=== PATIENT | male | born 1955 | race Caucasian/White ===

== ENCOUNTER 2016-05-28 21:04 | Emergency (ER) | payer MEDICARE, MEDICAID ==
[~2016-05-28] VITALS: Ht 172.7 cm; Wt 74.8 kg
[2016-05-28 21:04] VITALS: BP 118/82; PULSE 110; RESP 14; TEMP 99.9; O2SAT 99
[~2016-05-28 21:04] MED LIST: THYR60TA30 PO
--- NOTE | 2016-05-28 21:04 | NUR ---
Patient to ER bed 1 to gown for evaluation. Side rails up. Report given to GONZÁLEZ Ngo.
--- NOTE | 2016-05-28 21:05 | NUR ---
Pt brought in by ALS transport in stable condition. Pt was found in tri-podding position at a [employer] room. Pt stated that he was released from retirement today and has not been taking meds. Pt has a hx asthma and thyroid. Pt had a breathing tx in route. Placed pt on quality assurance monitor. No acute distress noted at this time, will continue to monitor. Pt present w/ 18 G to left AC placed by medics.
--- NOTE | 2016-05-28 21:13 | NUR ---
ER at bedside examining patient.
[2016-05-28] MEDS ORDERED: methylPREDNISolone SOD SUCC/PF 62.5 MG/ML VIAL IVP ONE (21:30)
[2016-05-28] MEDS ORDERED: IPRATROPIUM/ALBUTEROL SULFATE 3 ML AMPUL.NEB INH ONE (21:30)
[2016-05-28] MEDS ORDERED: NACL 0.9% 1,000 ML IV ONE (21:30)
[2016-05-28 21:55] LABS: BASOPHILS # (AUTO) 0.2 K/uL (0.0-0.2); BASOPHILS % (AUTO) 1.5 % (0.0-2.0); EOSINOPHILS % (AUTO) 0.2 % (0.0-4.0); HEMATOCRIT 46.1 % (36-54); HEMOGLOBIN 15.6 g/dL (14.0-18.0); LYMPHOCYTES # (AUTO) 0.7 K/uL (1.0-5.5); LYMPHOCYTES % (AUTO) 5.1 % (20.5-51.5); MEAN CORPUSCULAR HEMOGLOBIN 30 pg (27-31); MEAN CORPUSCULAR HGB CONC 34 % (32-36); MEAN CORPUSCULAR VOLUME 87 fL (79.0-98.0); MONOCYTES # (AUTO) 0.7 K/uL (0.0-1.0); MONOCYTES % (AUTO) 4.5 % (1.7-9.3); NEUTROPHILS # (AUTO) 13.1 K/uL (1.8-7.7); NEUTROPHILS % (AUTO) 88.7 % (40.0-70.0); PLATELET COUNT (AUTO) 333 K/uL (130-430); RED BLOOD CELL COUNT(AUTO) 5.28 MIL/uL (4.2-6.2); RED CELL DISTRIBUTION WIDTH 12.1 % (9.0-15.0); WHITE BLOOD COUNT (AUTO) 14.7 K/uL (4.8-10.8)
[2016-05-28 21:59] LABS: CALCIUM 8.9 mg/dL (8.4-11.0); CREATININE 1.41 mg/dL (0.55-1.30); POTASSIUM 4.1 mmol/L (3.5-5.1)
[2016-05-28 22:04] LABS: ALBUMIN 3.9 g/dL (3.4-4.8); TOTAL BILIRUBIN 0.7 mg/dL (0.0-1.0); TOTAL PROTEIN, SERUM 7.1 g/dL (6.4-8.3)
[2016-05-28 23:27] VITALS: BP 102/63; PULSE 104; RESP 18; TEMP 99.8; O2SAT 94
--- NOTE | 2016-05-28 23:27 | NUR ---
Patient given written and verbal discharge instructions and verbalizes understanding. ER MD Estrella discussed with patient the results and treatment provided. Patient in stable condition. ID arm band removed. IV catheter removed intact and dressing applied, no active bleeding. Rx of Azithromycin and Prednisone given. Patient educated on pain management and to follow up with PMD. Pain Scale 0/10. Opportunity for questions provided and answered.
[2016-05-29] MEDS ORDERED: MONT10TA25 PO (06:43)
[2016-05-29] MEDS ORDERED: ALBU8.5H8 INH (06:43)
== END 2016-05-28 23:27 | disposition home or self-care (01) ==
LOC: SED 21:04
DX: J44.1 Chronic obstructive pulmonary disease with (acute) exacerbation (principal); E86.0 Dehydration; N17.9 Acute kidney failure, unspecified
CPT/HCPCS: 36415; 71010; 80053; 83880; 84484; 85025; 94640; 96361; 96374; 99285; J2930; J7030; J7050

== ENCOUNTER 2016-05-29 05:38 | Inpatient (IN) | payer MEDICARE, MEDICAID ==
[~2016-05-29] VITALS: Ht 172.7 cm; Wt 74.8 kg
[2016-05-29 05:40] VITALS: BP 98/60; PULSE 100; RESP 23; TEMP 98.1; O2SAT 98
--- NOTE | 2016-05-29 05:40 | NUR ---
Patient to ER bed 6 to gown for evaluation. Side rails up. Report given to LAWRENCE CLAUDIO.
--- NOTE | 2016-05-29 05:42 | NUR ---
at bedside examining pt
[2016-05-29] MEDS ORDERED: IPRATROPIUM/ALBUTEROL SULFATE 3 ML AMPUL.NEB INH ONE (05:45)
[2016-05-29] MEDS ORDERED: methylPREDNISolone SOD SUCC/PF 62.5 MG/ML VIAL IVP ONE (05:45)
[2016-05-29] MEDS ORDERED: AZITHROMYCIN 500 MG in NS 250 ML IV ONE (05:45)
[2016-05-29] MEDS ORDERED: NACL 0.9% 1,000 ML IV ONE (05:45)
--- NOTE | 2016-05-29 05:50 | NUR ---
Pt BIB ALS with c/o SOB , wheezing at lower lobes, 93% on RA. Pt stated that he was seen and treated at [facility] today, couldn't refill his Rx, and got SOB. A&Ox4, denies chestpain, denies N/V/D. Skin intact, warm, non-diaphretic. Will continue to monitor
[2016-05-29] MEDS ORDERED: AZITHROMYCIN 500 MG/VIAL (ZITHROMAX) IV ONE (06:06)
--- NOTE | 2016-05-29 06:10 | NUR ---
RT at bedside performing breathing tx
[2016-05-29] MEDS ORDERED: MONT10TA25 PO (06:43)
[2016-05-29] MEDS ORDERED: ALBU8.5H8 INH (06:43)
--- NOTE | 2016-05-29 06:43 | NUR ---
Medication reconciliation completed with information provided by pt. Any prior medication reconciliation on file was reviewed and corrected.
--- NOTE | 2016-05-29 07:07 | NUR ---
Care endorsed to Nayeli CLAUDIO
--- NOTE | 2016-05-29 07:39 | NUR ---
PT SLEEPING QUIETLY, NO CHANGES
--- NOTE | 2016-05-29 07:51 | NUR ---
RECEIVED ADMITTING ORDERS FROM DR AVILA, CALLED FOR BED.
--- NOTE | 2016-05-29 07:52 | NUR ---
Patient will be admitted to care of DR AVILA. Admitted to MED SURG unit. Will go to room 100-A. Belongings list completed. Summary report printed. Report given to NURSE.
--- NOTE | 2016-05-29 08:05 | NUR ---
ADMISSION: The patient, SARAHI HENRY, 60 y/o, M admitted by Dr. Ayala , was given written information regarding hospital policies, unit procedures and contact persons. Patient does not exhibit respiratory distress at this time. Valuables were checked and .
[2016-05-29 08:07] VITALS: BP 106/67; PULSE 94; RESP 18; TEMP 98; O2SAT 97
[2016-05-29] MEDS ORDERED: IPRATROPIUM/ALBUTEROL SULFATE 3 ML AMPUL.NEB INH PRN (08:15)
--- NOTE | 2016-05-29 08:41 | NUR ---
Notes Wallet with $306.00 and metal ring with 3 stones placed in security bag and sent to safe with security staff.
--- NOTE | 2016-05-29 08:48 | NUR ---
INITIAL NOTES RECEIVED PATIENT ON BED AWAKE.BREATHING EVEN AND UNLABORED.NO ACUTE DISTRESS.IV SALINE LOCK INTACT AND PATENT.SAFETY AND FALL PRECAUTIONS IN PLACE.CALL LIGHT WITHIN REACH.ORIENTED TO ROOM
[2016-05-29] MEDS: NICOTINE 21 MG/24 HR PATCH.TD24 TD SCH (08:56)
--- NOTE | 2016-05-29 10:14 | NUR ---
Consult Order received for a consult with Dr Johnson for COPD exacerbation. Call was placed to [phone], exchange on, spoke with Nya. Dr Sanchez is director of graduate admissions. Will follow up as needed.
--- NOTE | 2016-05-29 10:40 | NUR ---
NOTES CHECKED PATIENT;NO ACUTE DISTRESS
[2016-05-29] MEDS: AZITHROMYCIN 250 MG in NS 250 ML IV SCH (10:49)
[2016-05-29] MEDS: cefTRIAXone 1 GM in D5W 50 ML IV SCH (10:50)
[2016-05-29 11:15] VITALS: BP 106/67; PULSE 98
[2016-05-29] MEDS: IPRATROPIUM/ALBUTEROL SULFATE 3 ML AMPUL.NEB INH SCH ×4 (11:17→23:42)
[2016-05-29] MEDS: methylPREDNISolone SOD SUCC 40 MG/ML VIAL IVP SCH ×3 (11:52→23:49)
--- NOTE | 2016-05-29 12:15 | NUR ---
NOTES SERVED LUNCH;WITH GOOD APPETITE;TOLERATED FOOD WELL
--- NOTE | 2016-05-29 15:48 | NUR ---
NOTES PATIENT ON BED AWAKE WATCHING T.V.NO ACUTE DISTRESS.NEEDS ATTENDED TO
[2016-05-29] MEDS: MONTELUKAST 10 MG TABLET PO SCH (17:23)
--- NOTE | 2016-05-29 17:50 | NUR ---
NOTES PATIENT OFFERED SHOWER;AGREED AND ABLE TO DO ACTIVITY INDEPENDENTLY;TOLERATED WELL
--- NOTE | 2016-05-29 18:20 | NUR ---
CLOSING NOTES PATIENT ON BED AWAKE.BREATHING EVEN AND UNLABORED.NO ACUTE DISTRESS.IV SALINE LOCK INTACT AND PATENT.SAFETY AND FALL PRECAUTIONS IN PLACE.CALL LIGHT WITHIN REACH.WILL ENDORSE TO NEXT SHIFT ACCORDINGLY
--- NOTE | 2016-05-29 19:55 | NUR ---
OPENING NOTES PATIENT IS IN BED RESTING AND WATCHING TV. VITAL SIGNS ARE STABLE. NO SIGNS OF DISTRESS. BREATHING IS NON LABORED. PATIENT HAS NO COMPLAINTS OF PAIN. PATIENT IS INSTRUCTED TO CALL FOR ASSISTANCE. CALL LIGHT IS WITHIN REACH. BED ALARM IS ON. WILL CONTINUE TO MONITOR.
--- NOTE | 2016-05-29 22:30 | NUR ---
ROUNDS PATIENT WAS GIVEN A SANDWICH AND APPLE JUICE.
--- NOTE | 2016-05-30 | NUR ---
ROUNDS PATIENT IS IN BED RESTING AND LISTENING TO MUSIC ON THE TELEVISION. NO SIGNS OF DISTRESS. BREATHING IS NON LABORED. CALL LIGHT IS WITHIN REACH. PATIENT INSTRUCTED TO CALL FOR ASSISTANCE. WILL CONTINUE TO MONITOR.
[2016-05-30 00:28] VITALS: BP 108/68; PULSE 95; RESP 18; TEMP 98.2; O2SAT 93
--- NOTE | 2016-05-30 02:02 | NUR ---
ROUNDS PATIENT IS IN BED SLEEPING. NO SIGNS OF DISTRESS. BREATHING IS NON LABORED. CALL LIGHT IS WITHIN REACH. BED ALARM IS ON. WILL CONTINUE TO MONITOR.
[2016-05-30] MEDS: IPRATROPIUM/ALBUTEROL SULFATE 3 ML AMPUL.NEB INH SCH ×5 (03:19→18:36)
--- NOTE | 2016-05-30 03:30 | NUR ---
SHORTNESS OF BREATH. PATIENT STATED THAT HE FELT A LITTLE SHORT OF BREATH. O2 SAT=92, RR=17. CALLED RT AND RT IS AT BEDSIDE.
[2016-05-30 03:35] VITALS: BP 136/76; PULSE 102; RESP 18; TEMP 97.7; O2SAT 92
--- NOTE | 2016-05-30 03:50 | NUR ---
ROUNDS PATIENT IS HAS NO COMPLAINTS OF SHORTNESS OF BREATH. BREATHING IS NON LABORED. NO SIGNS OF DISTRESS. WILL CONTINUE TO MONITOR.
--- NOTE | 2016-05-30 04:45 | NUR ---
ROUNDS PATIENT IS IN BED SLEEPING. NO SIGNS OF DISTRESS. BREATHING IS NON LABORED. WILL CONTINUE TO MONITOR.
[2016-05-30] MEDS: methylPREDNISolone SOD SUCC 40 MG/ML VIAL IVP SCH ×4 (06:13→23:50)
--- NOTE | 2016-05-30 06:45 | NUR ---
SHORTNESS OF BREATH/THICK SPUTUM PATIENT HAS SHORTNESS OF BREATH. PATIENT IS COUGHING AND COUGHING UP THICK,CLEAR SPUTUM. O2 SAT= 89%. RR=20. RT IS AT BEDSIDE PROVIDING BREATHING TREATMENTS AND PERCUSSIONS. PATIENT IS TOLERATING IT WELL. WILL CONTINUE TO MONITOR.
--- NOTE | 2016-05-30 06:47 | NUR ---
SPOKE TO DR. CALIXTO CALLED DOCTOR MARILY TO INFORMED HIM OF PATIENT CONDITION OF SHORTNESS OF BREATHING, O2 SAT AND AT 88% AND THICK SPUTUM. INFORMED MD THAT RT IS AT BEDSIDE PROVIDING BREATHING TREATMENTS. NO NEW ORDERS. WILL CONTINUE TO MONITOR PATIENT.
--- NOTE | 2016-05-30 07:12 | NUR ---
CLOSING NOTES PATIENT IS IN BED EATING BREAKFAST. NO COMPLAINTS OF SHORTNESS OF BREATH. BREATHING IS NON LABORED. NO SIGNS OF DISTRESS. CALL LIGHT IS WITHIN REACH. WILL ENDORSE TO THE MORNING NURSE.
[2016-05-30 07:21] LABS: CALCIUM 8.5 mg/dL (8.4-11.0); CREATININE 0.98 mg/dL (0.55-1.30); POTASSIUM 4.8 mmol/L (3.5-5.1)
[2016-05-30 08:00] VITALS: BP 139/81; PULSE 105; RESP 18; TEMP 98.6; O2SAT 95
--- NOTE | 2016-05-30 08:00 | NUR ---
INITIAL NOTE PT LAYING IN BED, EASY TO AROUSE, ALERT AND ORIENTED X4, NO S/S OF DISTRESS OR COMPLAINT AT THIS TIME, VSS, IV TO LAC SALINE LOCKED, PATENT. PT DENIES ANY SOB AT THIS TIME, STATES THAT HIS CHEST JUST FELS TIGHT WHEN HE BREATHES. PT REORIENTED TO USE OF CALL LIGHT AND IT IS PLACED WITHIN REACH, SAFETY MEASURES IN PLACE, BED IN LOW POSITION AND LOCKED, WILL FOLLOW UP.
[2016-05-30] MEDS: NICOTINE 21 MG/24 HR PATCH.TD24 TD SCH ×2 (09:00→09:37)
[2016-05-30] MEDS: cefTRIAXone 1 GM in D5W 50 ML IV SCH (09:36)
[2016-05-30] MEDS: AZITHROMYCIN 250 MG in NS 250 ML IV SCH (09:37)
--- NOTE | 2016-05-30 09:45 | NUR ---
PT APPEARS TO BE ANXIOUS, COUGHING, STRUGGLING, CALLED RT FOR PRN BREATHING TREATMENT, SEEMS TO CALM PATIENT DOWN. CALL LIGHT WITHIN REACH, WILL CONTINUE TO MONITOR,
--- NOTE | 2016-05-30 10:45 | NUR ---
DR AUSTIN CHEW, MADE AWARE OF PATIENT HAVING PRN BREATHING TREATMENT EVERY 2 HOURS, OF PATIENTS COMPLAINT OF ANXIETY AND CHEST TIGHTNESS, MD WILL FOLLOW UP.
--- NOTE | 2016-05-30 11:15 | NUR ---
CONSULT PSYCH ANXIETY DR GALLARDO [phone] S/W [facility] OFFICE @ 0847
[2016-05-30 11:27] VITALS: BP 125/78; PULSE 120; RESP 17; TEMP 96.1; O2SAT 94
[2016-05-30] MEDS ORDERED: guaiFENesin 200 MG/CODEINE 20 MG/ 10 ML UDC PO PRN (11:45)
[2016-05-30] MEDS ORDERED: ENOXAPARIN SODIUM 40 MG/0.4 ML SYRINGE SUBCUT ONE (12:00)
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
--- NOTE | 2016-05-30 14:20 | NUR ---
PATIENT PICKED UP FOR PROCEDURE
--- NOTE | 2016-05-30 14:48 | NUR ---
PT RETURNED FROM PROCEDURE, NO S/S OF DISTRESS NOTED, RETURNED TO BED, BED IN LOW POSITION AND LOCKED, CALL LIGHT WITHIN REACH, WILL FOLLOW UP
[2016-05-30 15:36] VITALS: BP 133/82; PULSE 112; RESP 19; TEMP 98.1; O2SAT 97
[2016-05-30] MEDS: BENZONATATE 100 MG CAPSULE (TESSALON) PO SCH ×2 (15:37→21:41)
[2016-05-30] MEDS: MONTELUKAST 10 MG TABLET PO SCH (17:32)
--- NOTE | 2016-05-30 17:37 | NUR ---
ROUNDS LPT SITTING UP IN BED, HAVING DINNER, SEEMS CALM, NOT ANXIOUS AT THIS TIME, ADMINISTERED TIME APPROPRIATE MEDICATIONS, PT STATED THEY HAVE NO OTHER NEEDS AT THIS TIME, CALL LIGHT WITHIN REACH, WILL CONTINUE TO MONITOR
[2016-05-30] MEDS: BUDESONIDE 0.5 MG/2 ML AMPUL.NEB INH SCH (18:36)
--- NOTE | 2016-05-30 19:00 | NUR ---
CLOSING NOTE PT LAYING IN BED, WATCHING TV, ALERT AND ORIENTED X4, IV TO LAC INTACT, PATENT. NO S/S OF DISTRESS OR ANXIETY NOTED AT THIS TIME, ALL NEEDS ATTENDED TO THROUGHOUT THE SHIFT, SAFETY MEASURES MAINTAINED, CALL LIGHT WITHIN REACH, BED IN LOW POSITION AND LOCKED, BED ALARM ON, PT AWARE OF FALL PRECAUTIONS,, WILL GIVE REPORT TO FOLLOWING SHIFT.
--- NOTE | 2016-05-30 20:03 | NUR ---
Opening Note Report received from Elsy CLAUDIO. Patient is in stable condition. IV is on the LAC 20g, saline locked. Currently on 2L O2 via NC. Patient has been having episodes of SOB. Breathing treatments are scheduled and PRN as well. Advised to use call light whenever in need of assistance. Call light is within reach.
[2016-05-30 20:13] VITALS: BP 149/99; PULSE 103; PULSE 20; RESP 20; TEMP 99.4; O2SAT 95
--- NOTE | 2016-05-30 22:20 | NUR ---
Rounds Patient is currently resting in bed. call light is within reach.
--- NOTE | 2016-05-31 00:37 | NUR ---
Rounds Patient is resting in bed. Call light is within reach. Bed alarm is on.
[2016-05-31 00:43] VITALS: BP 146/83; PULSE 106; RESP 17; TEMP 98; O2SAT 100
[2016-05-31] MEDS: IPRATROPIUM/ALBUTEROL SULFATE 3 ML AMPUL.NEB INH SCH ×6 (02:03→23:24)
--- NOTE | 2016-05-31 02:40 | NUR ---
Rounds Assisted patient to the restroom and back. Patient stated feeling short of breath. RT called for a breathing treatment will reassess.
[2016-05-31 04:32] VITALS: BP 142/86; PULSE 112; RESP 18; TEMP 98.2; O2SAT 99
--- NOTE | 2016-05-31 04:38 | NUR ---
Rounds Patient is currently sleeping in bed. Call light is within reach. Bed alarm is on.
[2016-05-31] MEDS: methylPREDNISolone SOD SUCC 40 MG/ML VIAL IVP SCH ×3 (05:21→22:27)
--- NOTE | 2016-05-31 06:10 | NUR ---
Closing Note Patient is resting in bed. He expressed being worried about his belongings left behind at the [employer] were patient was staying. Called the [employer], with the patient's permission, and asked to please hold the patient's belongings. IV is on the LAV 20g, saline locked. Psych consult is still pending will endorse to oncoming shift. Call light is within reach. Bed alarm is on.
[2016-05-31 07:05] LABS: HEMATOCRIT 42.9 % (36-54); HEMOGLOBIN 14.3 g/dL (14.0-18.0); LYMPHOCYTES # (AUTO) 0.5 K/uL (1.0-5.5); LYMPHOCYTES % (AUTO) 2.8 % (20.5-51.5); MEAN CORPUSCULAR HEMOGLOBIN 30 pg (27-31); MEAN CORPUSCULAR HGB CONC 33 % (32-36); MEAN CORPUSCULAR VOLUME 89 fL (79.0-98.0); MONOCYTES # (AUTO) 0.8 K/uL (0.0-1.0); MONOCYTES % (AUTO) 4.5 % (1.7-9.3); NEUTROPHILS # (AUTO) 17.4 K/uL (1.8-7.7); PLATELET COUNT (AUTO) 318 K/uL (130-430); RED BLOOD CELL COUNT(AUTO) 4.81 MIL/uL (4.2-6.2); RED CELL DISTRIBUTION WIDTH 12.8 % (9.0-15.0); WHITE BLOOD COUNT (AUTO) 18.7 K/uL (4.8-10.8)
[2016-05-31 07:13] LABS: CALCIUM 8.8 mg/dL (8.4-11.0); CREATININE 0.88 mg/dL (0.55-1.30); POTASSIUM 4.2 mmol/L (3.5-5.1)
[2016-05-31] MEDS: BUDESONIDE 0.5 MG/2 ML AMPUL.NEB INH SCH ×2 (07:25→19:59)
--- NOTE | 2016-05-31 08:00 | NUR ---
INITIAL NOTE PATIENT LAYING IN BED, RESTING, RECEIVING BREATHING TREATMENT AT THIS TIME, NO S/S OF DISTRESS, PAIN OR ANXIETY NOTED, IV TO LAC INTACT, SALINE LOCKED. PT ALERT AND ORIENTED X4. SAFETY PRECAUTIONS IN PLACE, BED IN LOW POSITION AND LOCKED, PT REORIENTED TO USE OF CALL LIGHT AND IT IS PLACED WITHIN REACH. MEAL TRAY SET UP FOR BREAKFAST BEFORE LEAVING ROOM, WILL FOLLOW UP.
[2016-05-31 08:05] VITALS: BP 134/72; PULSE 100; RESP 15; TEMP 96.9; O2SAT 100
[2016-05-31] MEDS: NICOTINE 21 MG/24 HR PATCH.TD24 TD SCH (09:00)
[2016-05-31] MEDS: BENZONATATE 100 MG CAPSULE (TESSALON) PO SCH ×3 (09:10→20:52)
[2016-05-31] MEDS: ENOXAPARIN SODIUM 40 MG/0.4 ML SYRINGE SUBCUT SCH (09:11)
[2016-05-31] MEDS: AZITHROMYCIN 250 MG in NS 250 ML IV SCH (09:12)
[2016-05-31] MEDS: cefTRIAXone 1 GM in D5W 50 ML IV SCH (09:12)
--- NOTE | 2016-05-31 10:00 | NUR ---
ROUNDS PT SITTING UP IN BED, ASSISTED IN PARTIAL BED BATH WITH HELP OF STUDENTS ROUNDING, NO S/S OF DISTRESS NOTED, APPEARS CALM AND LESS ANXIOUS, IN GOOD SPIRITS. SAFETY MEASURES IN PLACE, CALL LIGHT WITH IN REACH, WILL FOLLOW UP
[2016-05-31 10:51] LABS: NEUTROPHILS % (AUTO) 92.7 % (40.0-70.0)
[2016-05-31 11:29] VITALS: BP 123/76; PULSE 103; RESP 19; TEMP 97.6; O2SAT 94
--- NOTE | 2016-05-31 12:00 | NUR ---
ROUNDS PT SITTING UP IN BED, RESTING, EYES CLOSED, EQUAL RISE AND FALL OF CHEST NOTED, CALL LIGHT WITHIN REACH, WILL FOLLOW UP.
--- NOTE | 2016-05-31 14:00 | NUR ---
ROUNDS PT LAYING IN BED, SLEEPING, EASY TO AROUSE, STATES HE HAS NO NEEDS AT THIS TIME HE IS JUST FINALLY FEELING BETTER AND ABLE TO REST. SAFETY MEASURES IN PLACE, CALL LIGHT WITHIN REACH, WILL FOLLOW UP.
[2016-05-31 15:38] VITALS: BP 120/75; PULSE 96; RESP 19; TEMP 97.5; O2SAT 96
--- NOTE | 2016-05-31 16:44 | NUR ---
PSYCH CONSULT F/U Spoke with Ange regarding request for consultation with Dr. Arrieta ([phone]) for reason: anxiety.
[2016-05-31] MEDS: MONTELUKAST 10 MG TABLET PO SCH (17:24)
--- NOTE | 2016-05-31 17:30 | NUR ---
ROUNDS PATIENT SITTING UP IN BED, WATCHING TV, MEAL TRAY SET UP FOR DINNER, ADMINISTERED TIME APPROPRIATE MEDICATIONS, ALL NEEDS ATTENDED TO, CALL LIGHT WITH IN REACH. WILL FOLLOW UP
--- NOTE | 2016-05-31 19:00 | NUR ---
CLOSING NOTE PT SITTING UP IN BED, APPEARS TO BE IN GOOD SPIRITS, NO S/S OF DISTRESS OR ANXIETY NOTED, PT DENIES ANY SOB, VSS, IV SITE TO LAC PATENT AND INTACT, SALINE LOCKED. ALL NEEDS ATTENDED TO THROUGHOUT SHIFT. PSYCH CONSULT WAS CALLED IN YESTERDAY AND FOLLOWED UP ON TODAY, STILL AWAITING CONSULT. WILL ENDORSE TO FOLLOWING SHIFT. SAFETY MEASURES MAINTAINED, BED IN LOW POSITION AND LOCKED, CALL LIGHT WITHIN REACH, WILL GIVE REPORT TO FOLLOWING SHIFT.
[2016-05-31 20:00] VITALS: BP 140/81; PULSE 98; RESP 20; TEMP 98.3; O2SAT 96
--- NOTE | 2016-05-31 20:00 | NUR ---
opening note received patient awake sitting up in bed watching tv. no s/s resp distress. on room air. 02 95%. poc discussed with pt. comm board updated. safety precautions in place.
[2016-06-01] VITALS (7 sets, daily range): BP systolic 109–145; BP diastolic 65–99; PULSE 78–103; RESP 16–19; TEMP 96.4–98.6; O2SAT 91–97
--- NOTE | 2016-06-01 00:11 | NUR ---
PT RESTING NO S/S RESP DISTRESS. NO C/O PAIN. WILL CONTINUE TO MONITOR.
[2016-06-01] MEDS: IPRATROPIUM/ALBUTEROL SULFATE 3 ML AMPUL.NEB INH SCH ×6 (04:08→23:07)
--- NOTE | 2016-06-01 05:09 | NUR ---
ROUNDS PT AWAKE WATCHING TV. PT SAYS HE WAS ABLE TO SLEEP ON AND OFF THROUGH OUT NIGHT. NO S/S RESP DISTRESS. DUE MEDS TO BE GIVEN.
[2016-06-01] MEDS: methylPREDNISolone SOD SUCC 40 MG/ML VIAL IVP SCH ×3 (05:26→21:18)
[2016-06-01] MEDS: THYROID 30 MG TABLET PO SCH (06:22)
[2016-06-01] MEDS: BUDESONIDE 0.5 MG/2 ML AMPUL.NEB INH SCH ×2 (07:20→19:41)
--- NOTE | 2016-06-01 07:30 | NUR ---
am rounds: patient woke up and i introduced myself. awake,alert and oriented x4. iv to saline lock in placed. no distress. pt went back to sleep.
--- NOTE | 2016-06-01 08:00 | NUR ---
meal: breakfast served. pt situated,started eating his meal.
[2016-06-01] MEDS: BENZONATATE 100 MG CAPSULE (TESSALON) PO SCH ×3 (08:42→21:18)
[2016-06-01] MEDS: ENOXAPARIN SODIUM 40 MG/0.4 ML SYRINGE SUBCUT SCH (08:42)
[2016-06-01] MEDS: NICOTINE 21 MG/24 HR PATCH.TD24 TD SCH (08:42)
[2016-06-01] MEDS: cefTRIAXone 1 GM in D5W 50 ML IV SCH (08:43)
[2016-06-01] MEDS: AZITHROMYCIN 250 MG in NS 250 ML IV SCH (08:43)
--- NOTE | 2016-06-01 10:05 | NUR ---
rounds: resting. no problem.
--- NOTE | 2016-06-01 12:00 | NUR ---
ROUNDS: PT HAVING LUNCH.
--- NOTE | 2016-06-01 14:00 | NUR ---
IV MEDS: DUE IV SOLUMEDROL GIVEN ORDERED.
--- NOTE | 2016-06-01 15:08 | NUR ---
ROUNDS: PATIENT RESTING. STABLE.
[2016-06-01] MEDS: MONTELUKAST 10 MG TABLET PO SCH (17:39)
--- NOTE | 2016-06-01 17:43 | NUR ---
MEALS: EATING DURING ROUNDS. STABLE.
--- NOTE | 2016-06-01 18:30 | NUR ---
closing notes: stable. no problem.
--- NOTE | 2016-06-01 19:45 | NUR ---
initial note pt. received aaox4, no s/s of distress at this time. pt. denies pain. receiving breathing tx at this time. IV access noted to left AC, saline lock. pt. states he is able to ambulate with steady gait. encouraged to call for assistance, verbalizes understanding. plan of care discussed with pt., verbalizes understanding.will continue to monitor for any changes. safety and fall precautions in place. call light in reach. bed in lowest position with x2 side rails up.
--- NOTE | 2016-06-01 22:05 | NUR ---
rounds pt. sitting up in bed, no s/s of sob or distress noted. pt. denies pain. provided pt. with sandwich per his request. will continue to monitor for any changes. safety and fall precautions in place. call light in reach. pt. encouraged to call for any assistance. verbalizes understanding.
[2016-06-02 00:11] VITALS: BP 143/97; PULSE 98; RESP 18; TEMP 97.6; O2SAT 92
[2016-06-02] MEDS: ZOLPIDEM TARTRATE 5 MG TABLET PO PRN (00:19)
--- NOTE | 2016-06-02 00:20 | NUR ---
ROUNDS PT. SITTING UP IN BED WRITING NOTES ON PAPER. NO S.S OF SOB OR DISTRESS NOTED. PT. DENIES PAIN AT THIS TIME. PROVIDED PT. WITH MEDICATION TO PROMOTE SLEEP ORDERED, PER HIS REQUEST. WILL CONTINUE TO MONITOR. SAFETY AND FALL PRECAUTIONS IN PLACE. CALL LIGHT IN REACH.
--- NOTE | 2016-06-02 02:15 | NUR ---
ROUNDS PT. RESTING IN BED WITH EYES CLOSED. CHEST RISE AND FALL NOTED. NO S/S OF SOB OR DISTRESS. NO FACIAL GRIMACING INDICATING PAIN. WILL CONTINUE TO MONITOR FOR ANY CHANGES. SAFETY AND FALL PRECAUTIONS IN PLACE. CALL LIGHT IN REACH.
[2016-06-02] MEDS: IPRATROPIUM/ALBUTEROL SULFATE 3 ML AMPUL.NEB INH SCH ×6 (03:00→23:27)
[2016-06-02 03:58] VITALS: BP 129/79; PULSE 82; RESP 18; TEMP 98.2; O2SAT 93
[2016-06-02] MEDS: methylPREDNISolone SOD SUCC 40 MG/ML VIAL IVP SCH (06:06)
[2016-06-02] MEDS: THYROID 30 MG TABLET PO SCH (06:06)
--- NOTE | 2016-06-02 06:31 | NUR ---
CLOSING NOTE PT. RESTING IN BED WITH EYES CLOSED, EASILY AWAKENS. NO S/S OF SOB OR DISTRESS. DENIES PAIN. ALL NECESSARY NEEDS WERE MET, SAFETY AND FALL PRECAUTIONS WERE MAINTAINED. WILL ENDORSE CARE TO AM NURSE. CALL LIGHT IN REACH.
[2016-06-02] MEDS: BUDESONIDE 0.5 MG/2 ML AMPUL.NEB INH SCH ×2 (07:00→20:08)
--- NOTE | 2016-06-02 07:20 | NUR ---
initial rounds: pt on bed awake, alert and oriented. i.v. access patent. discussed plan of care. call light within reach. report received at bedside.
[2016-06-02 08:30] VITALS: BP 130/103; PULSE 98; RESP 14; TEMP 98.2; O2SAT 92
--- NOTE | 2016-06-02 09:00 | NUR ---
Trupti rounds: Seen by Dr. Greenwood with new order and encourage to ambulate the pt.
[2016-06-02] MEDS: BENZONATATE 100 MG CAPSULE (TESSALON) PO SCH ×3 (09:26→21:26)
[2016-06-02] MEDS: cefTRIAXone 1 GM in D5W 50 ML IV SCH (09:26)
[2016-06-02] MEDS: AZITHROMYCIN 250 MG in NS 250 ML IV SCH (09:26)
[2016-06-02] MEDS: ENOXAPARIN SODIUM 40 MG/0.4 ML SYRINGE SUBCUT SCH (09:27)
[2016-06-02] MEDS: NICOTINE 21 MG/24 HR PATCH.TD24 TD SCH (09:27)
[2016-06-02] MEDS: PREDNISONE 20 MG TABLET PO SCH ×2 (09:39→21:26)
--- NOTE | 2016-06-02 10:00 | NUR ---
rounds: pt able to ambulate in the hallway with assist.
[2016-06-02 11:52] VITALS: BP 134/82; PULSE 104; RESP 17; TEMP 98.9; O2SAT 93
--- NOTE | 2016-06-02 14:00 | NUR ---
rounds: pt on bed. no distress noted.
--- NOTE | 2016-06-02 15:45 | NUR ---
DC planning:Rec'd call from win Medellin at [employer] [phone]--his fax#[phone]--indicating pt is out of network and needs transfer in-network to [facility]--I called Dr. Jono Ayala and informed him-he said pt is medically stable for transfer to [facility]--I gave [place] Dr. Ayala's ph# and he said he will call us if [facility] has a bed and to use [facility] (he will call the nursing unit back with auth#)-I set up [facility] on will-call at [phone]--nurse Lizeth made aware and she will inform pt of need for transfer to [facility]--SOFY CLAUDIO Addendum: 06/02/16 at 1650 by Alta Morgan RN Transfer packet and cd taken to nursing unit by Chichi Uribe, vp digital marketing social media and crm--SOFY CLAUDIO
--- NOTE | 2016-06-02 17:00 | NUR ---
rounds: informed patient that he will be transferred to [facility], he verbalized understanding and agreed to the transfer.
[2016-06-02 17:10] VITALS: BP 147/92; PULSE 97; RESP 16; TEMP 99.8; O2SAT 93
[2016-06-02] MEDS: MONTELUKAST 10 MG TABLET PO SCH (17:43)
--- NOTE | 2016-06-02 17:46 | NUR ---
[facility]: JUAN Medellin, called and informed that the transfer papers is still going on until midnight. After midnight pt will be transferred tomorrow.
--- NOTE | 2016-06-02 19:30 | NUR ---
closing notes: patient walking back to the bed from the toilet. stable. call light within reach. report given at bedside.
[2016-06-02 19:45] VITALS: BP 144/89; PULSE 90; RESP 19; TEMP 99.4; O2SAT 94
--- NOTE | 2016-06-02 19:45 | NUR ---
INITIAL NOTE Patient resting on the bed. No acute distress. Respiration even and unlabored. AO x 4. Skin warm and dry to touch. SL intact to LAC, no redness, no swelling. Discussed the safety issue, use call light when help, and plan of care, verbally understanding. Safety measure maintained. Call light within reached. Bed in low position, side rails up. Refused to turn on bed alarm. Will continue to monitor.
--- NOTE | 2016-06-02 21:45 | NUR ---
ROUND Patient resting on the bed and talking to roommate. No acute distress. Respiration even and unlabored. Safety measure maintained. Call light within reached. Bed in low position, side rail up. Continue to monitor.
[2016-06-03] MEDS: ZOLPIDEM TARTRATE 5 MG TABLET PO PRN (00:12)
--- NOTE | 2016-06-03 00:14 | NUR ---
AMBIEN GIVEN Patient c/o insomnia, Ambien 5mg Po given as ordered. No acute distress. Safety measure maintained. Bed in low position, side rails up. Call light within reached. Educated patient to use call light when needs help because bed alarm not on, verbally understanding. Still refused bed alarm and stated" I did better." Call light within reached. Continue to monitor.
[2016-06-03 00:21] VITALS: BP 142/95; PULSE 89; RESP 18; TEMP 97.8; O2SAT 100
--- NOTE | 2016-06-03 02:10 | NUR ---
ROUND Patient sleeping at this time. No acute distress. Respiration even and unlabored. Safety measure maintained. Call light within reached. Bed in low position, side rail up. Continue to monitor.
[2016-06-03 03:39] VITALS: BP 122/72; PULSE 74; RESP 18; TEMP 97; O2SAT 94
--- NOTE | 2016-06-03 04:05 | NUR ---
ROUND Patient sleeping comfortable. No acute distress. Safety measure maintained. Call light within reached. Bed in low position, side rail up. Continue to monitor.
--- NOTE | 2016-06-03 05:27 | NUR ---
ROUND Patient sleeping comfortable. Respiration even and unlabored. No acute distress. Safety measure maintained. Call light within reached. Bed in low position, side rail up. Continue to monitor.
[2016-06-03] MEDS: THYROID 30 MG TABLET PO SCH (06:25)
--- NOTE | 2016-06-03 07:00 | NUR ---
CLOSING NOTE Patient resting on the bed. No acute distress. Respiration even and unlabored. SL intact to LAC, no redness, no swelling. All needs met. Hourly rounding during shift. Safety measure maintained. Call light within reached. Bed in low position, side rails up. Refused to turn on bed alarm. Will endorse to morning shift nurse.
--- NOTE | 2016-06-03 07:20 | NUR ---
initial notes: pt on bed. stable. discussed plan of care. call light within reach. report received at bedside.
[2016-06-03] MEDS: BUDESONIDE 0.5 MG/2 ML AMPUL.NEB INH SCH (07:21)
[2016-06-03] MEDS: IPRATROPIUM/ALBUTEROL SULFATE 3 ML AMPUL.NEB INH SCH ×3 (07:22→18:04)
--- NOTE | 2016-06-03 07:30 | NUR ---
Nutrition Update Anthony Scale 16 noted. Pt admitted for COPD exacerbation. Diet: regular BMI: 25.1 kg/m2 RD to follow per nutrition care standards.
[2016-06-03 08:00] VITALS: BP 131/80; PULSE 99; RESP 14; TEMP 98.1; O2SAT 94
[2016-06-03] MEDS: NICOTINE 21 MG/24 HR PATCH.TD24 TD SCH (08:27)
[2016-06-03] MEDS: cefTRIAXone 1 GM in D5W 50 ML IV SCH (08:27)
[2016-06-03] MEDS: PREDNISONE 20 MG TABLET PO SCH (08:27)
[2016-06-03] MEDS: ENOXAPARIN SODIUM 40 MG/0.4 ML SYRINGE SUBCUT SCH (08:27)
[2016-06-03] MEDS: BENZONATATE 100 MG CAPSULE (TESSALON) PO SCH ×2 (08:27→14:47)
--- NOTE | 2016-06-03 11:18 | NUR ---
Fixed Wing Pilot: CM informed nurse changes in the plan of care. [facility] medical informed that if pt is stable can be discharge and no need to transfer to [facility] due to 5 days already stayed in the hospital. CM suggest for lab test since last lab was 05/31. Informed Dr. Ayala with an order for labs, CXR and to begin discharge planning.
[2016-06-03 11:25] VITALS: BP 133/79; PULSE 103; RESP 19; TEMP 96.6; O2SAT 95
--- NOTE | 2016-06-03 11:54 | NUR ---
Social Service Note: TURFGRASS TECHNICIAN met at beside wit pt; pt's nurse present. TURFGRASS TECHNICIAN discussed that pt may be discharged this afternoon when pt's physician rounds and reviews pt's labs. TURFGRASS TECHNICIAN spoke with pt about his discharge plans; pt stated that he was unsure. Pt states that he needs to return to [employer] to retrieve his belongings; pt states that he is unsure if he will stay at [employer]. TURFGRASS TECHNICIAN spoke with pt about homeless resources; pt states that he will not go to a nursing home. TURFGRASS TECHNICIAN provided pt with homeless resources if he changed his mind. TURFGRASS TECHNICIAN asked pt if he had made contact with his father; pt states that he does not remember the phone number and once he retrieves his belongings he will be able to call his father. Pt states that he will stay in [place] or go to his fathers house if the restraining order has been lifted. Pt will need a taxi voucher to get to [employer]. TURFGRASS TECHNICIAN has placed homeless waiver in pt's chart to be signed upon discharge. TURFGRASS TECHNICIAN will remain available for support and will follow up as needed.
[2016-06-03 12:28] LABS: CALCIUM 8.6 mg/dL (8.4-11.0); CREATININE 0.94 mg/dL (0.55-1.30)
[2016-06-03 12:52] LABS: BASOPHILS # (AUTO) 0.1 K/uL (0.0-0.2); BASOPHILS % (AUTO) 0.8 % (0.0-2.0); EOSINOPHILS % (AUTO) 0.1 % (0.0-4.0); HEMOGLOBIN 15.8 g/dL (14.0-18.0); LYMPHOCYTES # (AUTO) 1.9 K/uL (1.0-5.5); LYMPHOCYTES % (AUTO) 11.9 % (20.5-51.5); MEAN CORPUSCULAR HEMOGLOBIN 29 pg (27-31); MEAN CORPUSCULAR HGB CONC 34 % (32-36); MEAN CORPUSCULAR VOLUME 88 fL (79.0-98.0); MONOCYTES # (AUTO) 2.3 K/uL (0.0-1.0); MONOCYTES % (AUTO) 14.8 % (1.7-9.3); NEUTROPHILS # (AUTO) 11.5 K/uL (1.8-7.7); NEUTROPHILS % (AUTO) 72.4 % (40.0-70.0); PLATELET COUNT (AUTO) 433 K/uL (130-430); RED BLOOD CELL COUNT(AUTO) 5.35 MIL/uL (4.2-6.2); RED CELL DISTRIBUTION WIDTH 12.5 % (9.0-15.0); WHITE BLOOD COUNT (AUTO) 15.8 K/uL (4.8-10.8)
--- NOTE | 2016-06-03 14:52 | NUR ---
rounds: pt on bed resting. no distress noted.
[2016-06-03 15:58] VITALS: BP 146/99; PULSE 104; RESP 19; TEMP 97.3; O2SAT 95
[2016-06-03] MEDS ORDERED: PRED10TA PO (17:09)
--- NOTE | 2016-06-03 17:30 | NUR ---
Trupti rounds: seen by Dr. Ayala with new order.
--- NOTE | 2016-06-03 17:42 | NUR ---
Rec'd call from Mantara iwn Chapman who was made aware pt is homeless-she is making appt for him as outpt and will fax it to us. She faxed it--this info was given to nurse Stanley who will give to pt-environmental services worker has met with pt earlier today--SOFY RN
[2016-06-03] MEDS: MONTELUKAST 10 MG TABLET PO SCH (18:12)
[2016-06-03 18:35] VITALS: BP_SYST 138; BP_SYST 146; BP_DIAS 80; BP_DIAS 99; PULSE 100; PULSE 104; RESP 19; TEMP 97.3; O2SAT 95
[2016-06-03] MEDS ORDERED: BECL8.7A5 INH (18:45)
--- NOTE | 2016-06-03 19:30 | NUR ---
D/C Patient Patient given medication reconciliation form and D/C instructions. Exit Care provided. Patient verbalized understanding. MD discussed with patient the results and treatment provided. Ambulatory with steady gait for discharge to home. Patient in stable condition, ID band removed. IV catheter removed, intact and dressing applied, no active bleeding. Rx given. Patient educated on pain management. All belongings sent with patient. Pt went to lobby to cloth picker his valuable belongings and wait for the taxi.
--- NOTE | 2016-06-13 15:08 | NUR ---
Discharge Follow Up Phone Calls: Call Center Support Representative called pt ([phone]) on 06/08/16, 06/09/16, 06/13/16, psych social worker was unable to leave a message for pt due to phone number not accepting calls. No further follow up calls will be made at this time.
== END 2016-06-03 19:45 | disposition home or self-care (01) | DRG 191 ==
LOC: SED 05:38 → SMU 07:47
PROVIDERS: ADMIT Family Medicine; ATTEND Family Medicine
DX: J44.1 Chronic obstructive pulmonary disease with (acute) exacerbation (principal); J45.901 Unspecified asthma with (acute) exacerbation; N28.9 Disorder of kidney and ureter, unspecified; E03.9 Hypothyroidism, unspecified; F41.9 Anxiety disorder, unspecified; F17.200 Nicotine dependence, unspecified, uncomplicated; G47.00 Insomnia, unspecified; Z79.899 Other long term (current) drug therapy
CPT/HCPCS: 36415; 71010; 71020-TC; 80048; 85025; 87040-TC; 94640; 94760; 96365; 96375; 99285; J0456; J0696; J1030; J1650; J2930; J7030; J7050; J7060; J7512

== ENCOUNTER 2018-03-19 10:21 | Emergency (ER) | payer MEDICARE, MEDICAID ==
[~2018-03-19] VITALS: Ht 172.7 cm; Wt 77.1 kg
[~2018-03-19 10:21] MED LIST changes: +ALBU8.5H8 INH; +BECL8.7A5 INH; +MONT10TA25 PO; +PRED10TA PO
[2018-03-19 10:25] VITALS: BP_SYST 140
--- NOTE | 2018-03-19 10:25 | NUR ---
BROUGHT BACK TO BED #4 AND TRIAGED. REPORT GIVEN TO HERMANN
--- NOTE | 2018-03-19 10:40 | NUR ---
ER Dr. VILLASENOR at bedside examining patient.
--- NOTE | 2018-03-19 10:50 | NUR ---
PATIENT SITTING UP ON BED. AAOX4. RESPIRATIONS EVEN AND UNLABORED. DENIES OF ANY CHEST PAIN OR SOB. PT WITH C/O BILATERAL GREATER TOE PAIN. BILATERAL GREATER TOES NOTED WITH FLUID FILLED BLISTERS. PT STATES, "I HAVE BEEN NEWLY HOMELSS AND HAVE BEEN WALKING A LOT." PT DENIES OF ANY FEVERS. BILATERAL LOWER EXTREMITIES AND FEET NOTED WITH REDNESS, NO SWELLING, WARM TO TOUCH. PAIN = 4/10; TOLERABLE VERBALIZED. PT DENIES THE NEED FOR ANY PAIN MEDICATIONS. PT RESTING COMFORTABLY ON BED. NO ACUTE DISTRESS. WILL CONTINUE TO MONITOR.
--- NOTE | 2018-03-19 10:55 | NUR ---
BRIM WELT SEWING MACHINE OPERATOR AT BEDSIDE AND SPEAKING WITH PATIENT.
[2018-03-19 10:58] LABS: BASOPHILS # (AUTO) 0.1 K/uL (0.0-0.2); BASOPHILS % (AUTO) 1.5 % (0.0-2.0); EOSINOPHILS # (AUTO) 0.3 K/uL (0.0-0.4); HEMATOCRIT 44.4 % (36-54); HEMOGLOBIN 14.6 g/dL (14.0-18.0); LYMPHOCYTES # (AUTO) 2.1 K/uL (1.0-5.5); LYMPHOCYTES % (AUTO) 22.4 % (20.5-51.5); MEAN CORPUSCULAR HEMOGLOBIN 30 pg (27-31); MEAN CORPUSCULAR HGB CONC 33 % (32-36); MEAN CORPUSCULAR VOLUME 92 fL (79.0-98.0); NEUTROPHILS % (AUTO) 63.1 % (40.0-70.0); PLATELET COUNT (AUTO) 465 K/uL (130-430); RED CELL DISTRIBUTION WIDTH 12.8 % (9.0-15.0); WHITE BLOOD COUNT (AUTO) 9.5 K/uL (4.8-10.8)
[2018-03-19 11:10] LABS: CALCIUM 9.5 mg/dL (8.4-11.0); CREATININE 1.07 mg/dL (0.55-1.30); POTASSIUM 4.9 mmol/L (3.5-5.1)
[2018-03-19 11:15] LABS: ALBUMIN 4.1 g/dL (3.4-4.8); C-REACTIVE PROTEIN QUANT 2.5 mg/dL (0-0.5); INR 0.9 (0.80-1.20); PROTHROMBIN TIME 9.5 SECS (9.5-12.5); TOTAL BILIRUBIN 0.5 mg/dL (0.0-1.0)
--- NOTE | 2018-03-19 11:20 | NUR ---
HOMELESS RESOURCES INFORMATION GIVEN BY TWILL CUTTER.
--- NOTE | 2018-03-19 11:52 | NUR ---
Muskrat Trapper Note OPEN HEARTH LABORER met with patient at bedside. Discussed that patient has recently lost his home of two years and has been homeless one week. Patient stated he needs a place to sleep. He stated he has money but cannot go to a motel because he does not have a current ID. He stated he has disability income and health insurance with a primary care doctor. He stated he has been asked not to return to the winter snf. Patient is familiar with the bus system and is agreeable to going to a snf. He was given information on the [facility], [address] [facility] in [place]. He was told he will be given priority admission if he shows his hospital discharge paperwork. Patient was provided with directions to get there by bus and was told he should try to arrive by 3pm. tray drier operator are available on site. Patient stated he has money for food. He refused mental health resources but accepted the list of [facility] clinics for medical follow up in case his PCP is unavailable.
--- NOTE | 2018-03-19 12:38 | NUR ---
Patient given written and verbal discharge instructions and verbalizes understanding. ER MD VILLASENOR discussed with patient the results and treatment provided. Patient in stable condition. ID arm band removed. Rx of NORCO, CEPHALEXIN, CLINDAMYCIN, SULFAMETHOXAZOLE given. Patient educated on pain management and to follow up with PMD. Pain Scale 0. Opportunity for questions provided and answered. Medication side effect fact sheet provided.
[2018-03-19 12:39] VITALS: BP_SYST 133
== END 2018-03-19 12:39 | disposition home or self-care (01) ==
LOC: SED 10:21
DX: S90.822A Blister (nonthermal), left foot, initial encounter (principal); J45.909 Unspecified asthma, uncomplicated; Z79.899 Other long term (current) drug therapy; X58.XXXA Exposure to other specified factors, initial encounter; Y93.89 Activity, other specified; Y92.89 Other specified places as the place of occurrence of the external cause; Y99.8 Other external cause status
CPT/HCPCS: 36415; 80053; 85025; 85610-TC; 85730-TC; 86140; 99283

== ENCOUNTER 2018-06-07 15:35 | Emergency (ER) | payer MEDICARE, MEDICAID ==
[~2018-06-07] VITALS: Ht 172.7 cm; Wt 85.3 kg
--- NOTE | 2018-06-07 15:36 | NUR ---
Dr Galindo at bedside completing MSE at triage room
--- NOTE | 2018-06-07 15:40 | NUR ---
Patient to ER bed 05 to gown for evaluation. Side rails up.
--- NOTE | 2018-06-07 15:42 | NUR ---
Pt brought by self,A&Ox4, pt presents to ER with generalized skin rash , states he has used the jacuzzi the last three days and noticed the rash,c/o severe itching, pt afebrile.
[2018-06-07 15:48] VITALS: BP_SYST 151
[2018-06-07] MEDS ORDERED: methylPREDNISolone SOD SUCC/PF 62.5 MG/ML VIAL IM ONE (16:30)
--- NOTE | 2018-06-07 17:10 | NUR ---
Pt states he is homeless, Food tray and homeless packet provided to patient at this time.
[2018-06-07 17:24] VITALS: BP_SYST 148
--- NOTE | 2018-06-07 17:26 | NUR ---
Patient given written and verbal discharge instructions and verbalizes understanding. ER MD discussed with patient the results and treatment provided. Patient in stable condition. ID arm band removed. Rx of [Prednisone and Benadryl] given. Patient educated on pain management and to follow up with PMD. Pain Scale [ 0/10]. Opportunity for questions provided and answered. Medication side effect fact sheet provided.
== END 2018-06-07 17:26 | disposition home or self-care (01) ==
LOC: SED 15:35
DX: T78.40XA Allergy, unspecified, initial encounter (principal); J44.9 Chronic obstructive pulmonary disease, unspecified; R03.0 Elevated blood-pressure reading, without diagnosis of hypertension; Z79.899 Other long term (current) drug therapy; X58.XXXA Exposure to other specified factors, initial encounter
CPT/HCPCS: 96372; 99283; J2930; J7030

== ENCOUNTER 2018-06-09 13:42 | Emergency (ER) | payer MEDICARE, MEDICAID ==
[~2018-06-09] VITALS: Ht 172.7 cm; Wt 86.2 kg
[2018-06-09 13:51] VITALS: BP_SYST 137
--- NOTE | 2018-06-09 13:59 | NUR ---
Patient to ER bed 8 to gown for evaluation. Side rails up. Report given to Beronica CLAUDIO.
--- NOTE | 2018-06-09 14:04 | NUR ---
Patient is here for red rash which is itchy, with dry scales covering arms, legs, trunk and hands. Patient states that he was seen here 2 days ago, treated with steroids and has not improved.
--- NOTE | 2018-06-09 14:04 | NUR ---
ER Dr. Delgado at bedside examining patient.
[2018-06-09] MEDS ORDERED: NACL 0.9% 1,000 ML IV ONE (14:07)
[2018-06-09] MEDS ORDERED: DIPHENHYDRAMINE INJ 50 MG/ML VIAL IVP ONE (14:15)
[2018-06-09] MEDS ORDERED: DEXAMETHASONE SOD PHOSPHATE 10 MG/ML VIAL IVP ONE (14:15)
--- NOTE | 2018-06-09 14:35 | NUR ---
Medicated per MD orders. IVF infusing with no s/s of infiltration at this time. Will cont to monitor
--- NOTE | 2018-06-09 14:35 | NUR ---
# 18 gauge angiocath placed to left AC. Use of asceptic technique. Opsite placed over site. Blood return noted. Blood for lab drawn from site. Flushed with 10 cc of normal saline. No evidence of infiltration noted. Patient tolerated well.
[2018-06-09 14:46] LABS: CALCIUM 8.5 mg/dL (8.4-11.0); CREATININE 0.88 mg/dL (0.55-1.30)
[2018-06-09 14:52] LABS: ALBUMIN 3.6 g/dL (3.4-4.8); TOTAL BILIRUBIN 0.3 mg/dL (0.0-1.0)
[2018-06-09 14:56] LABS: BASOPHILS % (AUTO) 0.3 % (0.0-2.0); EOSINOPHILS % (AUTO) 0.3 % (0.0-4.0); HEMATOCRIT 40.9 % (36-54); HEMOGLOBIN 13.5 g/dL (14.0-18.0); LYMPHOCYTES % (AUTO) 10.9 % (20.5-51.5); MEAN CORPUSCULAR HEMOGLOBIN 30 pg (27-31); MEAN CORPUSCULAR HGB CONC 33 % (32-36); MEAN CORPUSCULAR VOLUME 91 fL (79.0-98.0); MONOCYTES % (AUTO) 3.3 % (1.7-9.3); NEUTROPHILS % (AUTO) 85.2 % (40.0-70.0); PLATELET COUNT (AUTO) 355 K/uL (130-430); RED CELL DISTRIBUTION WIDTH 13.2 % (9.0-15.0)
[2018-06-09 14:57] LABS: LYMPHOCYTES # (AUTO) 0.8 K/uL (1.0-5.5); MONOCYTES # (AUTO) 0.2 K/uL (0.0-1.0)
--- NOTE | 2018-06-09 15:08 | NUR ---
Patient given written and verbal discharge instructions and verbalizes understanding. ER MD discussed with patient the results and treatment provided. Patient in stable condition. ID arm band removed. IV catheter removed intact and dressing applied, no active bleeding. Rx of atarax, prednisone given. Patient educated on pain management and to follow up with PMD. Pain Scale 0/10. Opportunity for questions provided and answered. Medication side effect fact sheet provided.
[2018-06-09 15:12] VITALS: BP_SYST 137
== END 2018-06-09 15:12 | disposition home or self-care (01) ==
LOC: SED 13:42
DX: L20.9 Atopic dermatitis, unspecified (principal); L23.9 Allergic contact dermatitis, unspecified cause; J44.9 Chronic obstructive pulmonary disease, unspecified; R07.9 Chest pain, unspecified; Z79.899 Other long term (current) drug therapy
CPT/HCPCS: 36415; 80053; 85025; 96374; 96375; 99283; J1100; J1200; J7030

== ENCOUNTER 2018-07-04 06:10 | Inpatient (IN) | payer MEDICARE, MEDICAID ==
[~2018-07-04] VITALS: Ht 152.4 cm; Wt 87.1 kg
[2018-07-04 06:16] VITALS: BP_SYST 126
[2018-07-04] MEDS ORDERED: NACL 0.9% 1,000 ML IV ONE (06:40)
[2018-07-04] MEDS ORDERED: IPRATROPIUM BROM 0.5 MG/2.5 ML VIAL.NEB (ATROVENT) IH ONE (06:45)
[2018-07-04] MEDS ORDERED: methylPREDNISolone SOD SUCC/PF 62.5 MG/ML VIAL IVP ONE ×2 (06:45→10:30)
[2018-07-04] MEDS ORDERED: LevALBUTEROL HCL 1.25 MG/0.5 ML *CONC.* VIAL.NEB (XOPENEX CONC.) INH ONE ×4 (06:45→07:18)
[2018-07-04] MEDS ORDERED: MAGNESIUM SULFATE 50 ML IV ONE (06:45)
[2018-07-04 07:12] LABS: CALCIUM 8.3 mg/dL (8.4-11.0); CREATININE 0.98 mg/dL (0.55-1.30); POTASSIUM 3.7 mmol/L (3.5-5.1)
[2018-07-04 07:13] LABS: BASOPHILS # (AUTO) 0.1 K/uL (0.0-0.2); BASOPHILS % (AUTO) 1.1 % (0.0-2.0); EOSINOPHILS # (AUTO) 0.3 K/uL (0.0-0.4); EOSINOPHILS % (AUTO) 5.1 % (0.0-4.0); HEMATOCRIT 42.9 % (36-54); HEMOGLOBIN 14.5 g/dL (14.0-18.0); LYMPHOCYTES # (AUTO) 1.5 K/uL (1.0-5.5); LYMPHOCYTES % (AUTO) 23.7 % (20.5-51.5); MEAN CORPUSCULAR HEMOGLOBIN 30 pg (27-31); MEAN CORPUSCULAR HGB CONC 34 % (32-36); MEAN CORPUSCULAR VOLUME 90 fL (79.0-98.0); MONOCYTES # (AUTO) 1.3 K/uL (0.0-1.0); MONOCYTES % (AUTO) 19.6 % (1.7-9.3); NEUTROPHILS # (AUTO) 3.3 K/uL (1.8-7.7); NEUTROPHILS % (AUTO) 50.5 % (40.0-70.0); PLATELET COUNT (AUTO) 334 K/uL (130-430); RED CELL DISTRIBUTION WIDTH 13.1 % (9.0-15.0); WHITE BLOOD COUNT (AUTO) 6.4 K/uL (4.8-10.8)
[2018-07-04 07:17] LABS: ALBUMIN 3.5 g/dL (3.4-4.8); TOTAL BILIRUBIN 0.5 mg/dL (0.0-1.0)
[2018-07-04] MEDS ORDERED: LEVO25TA7 PO (08:59)
[2018-07-04 10:14] VITALS: BP_SYST 131
[2018-07-04] MEDS ORDERED: IPRATROPIUM BROM 0.5 MG/2.5 ML VIAL.NEB (ATROVENT) INH PRN (10:30)
[2018-07-04] MEDS ORDERED: ALBUTEROL SULFATE 0.083% 2.5 MG/3 ML VIAL.NEB INH PRN (10:30)
[2018-07-04] MEDS ORDERED: THYROID PORK 60 MG PO SCH (10:45)
[2018-07-04] MEDS ORDERED: LEVOTHYROXINE SODIUM 0.025 MG TABLET PO ONE (10:45)
[2018-07-04] MEDS: cefTRIAXone 1 GM IVPB PREMIX 50 ML IV SCH (11:12)
[2018-07-04] MEDS: ALBUTEROL SULFATE 0.083% 2.5 MG/3 ML VIAL.NEB INH SCH ×4 (11:18→23:07)
[2018-07-04] MEDS: IPRATROPIUM BROM 0.5 MG/2.5 ML VIAL.NEB (ATROVENT) INH SCH ×4 (11:18→23:07)
[2018-07-04] MEDS: AZITHROMYCIN 500 MG in NS 250 ML IV SCH (12:07)
[2018-07-04 12:41] VITALS: BP_SYST 142
[2018-07-04] MEDS: methylPREDNISolone SOD SUCC/PF 62.5 MG/ML VIAL IVP SCH ×2 (14:00→21:45)
[2018-07-04 16:35] VITALS: BP_SYST 152
[2018-07-04 20:00] VITALS: BP_SYST 135
[2018-07-04 23:56] VITALS: BP_SYST 126
[2018-07-05] MEDS: ALBUTEROL SULFATE 0.083% 2.5 MG/3 ML VIAL.NEB INH SCH ×6 (03:02→22:57)
[2018-07-05] MEDS: IPRATROPIUM BROM 0.5 MG/2.5 ML VIAL.NEB (ATROVENT) INH SCH ×6 (03:03→22:57)
[2018-07-05] MEDS: methylPREDNISolone SOD SUCC/PF 62.5 MG/ML VIAL IVP SCH ×3 (04:57→21:58)
[2018-07-05 08:00] VITALS: BP_SYST 129
[2018-07-05] MEDS ORDERED: LEVOTHYROXINE SODIUM 0.025 MG TABLET PO SCH (09:00)
[2018-07-05] MEDS ORDERED: LEVOTHYROXINE SODIUM 0.05 MG TABLET PO ONE (09:45)
[2018-07-05] MEDS: AZITHROMYCIN 500 MG in NS 250 ML IV SCH (09:45)
[2018-07-05] MEDS: cefTRIAXone 1 GM IVPB PREMIX 50 ML IV SCH (11:07)
[2018-07-05 13:53] VITALS: BP_SYST 145
[2018-07-05] MEDS: PHENOL/MENTHOL 14.5 MG LOZENGE MM PRN (14:59)
[2018-07-05 16:40] VITALS: BP_SYST 138
[2018-07-05 19:25] VITALS: BP_SYST 139
[2018-07-05] MEDS: guaiFENesin ER 600 MG TAB PO SCH (21:57)
[2018-07-06 01:01] VITALS: BP_SYST 136
[2018-07-06] MEDS: IPRATROPIUM BROM 0.5 MG/2.5 ML VIAL.NEB (ATROVENT) INH SCH ×6 (03:00→22:23)
[2018-07-06] MEDS: ALBUTEROL SULFATE 0.083% 2.5 MG/3 ML VIAL.NEB INH SCH ×6 (03:00→22:23)
[2018-07-06] MEDS: methylPREDNISolone SOD SUCC/PF 62.5 MG/ML VIAL IVP SCH ×3 (06:15→21:37)
[2018-07-06 08:00] VITALS: BP_SYST 135
[2018-07-06] MEDS: LEVOTHYROXINE SODIUM 0.05 MG TABLET PO SCH (09:40)
[2018-07-06] MEDS: guaiFENesin ER 600 MG TAB PO SCH ×2 (09:45→21:42)
[2018-07-06] MEDS: AZITHROMYCIN 500 MG in NS 250 ML IV SCH (09:46)
[2018-07-06] MEDS: cefTRIAXone 1 GM IVPB PREMIX 50 ML IV SCH (11:57)
[2018-07-06 13:39] VITALS: BP_SYST 128
[2018-07-06 17:16] VITALS: BP_SYST 148
[2018-07-06] MEDS: MONTELUKAST 10 MG TABLET PO SCH (17:16)
[2018-07-06 21:25] VITALS: BP_SYST 138
[2018-07-06] MEDS: PHENOL/MENTHOL 14.5 MG LOZENGE MM PRN (21:39)
[2018-07-07 00:55] VITALS: BP_SYST 139
[2018-07-07] MEDS: LEVOTHYROXINE SODIUM 0.05 MG TABLET PO SCH (06:21)
[2018-07-07] MEDS: methylPREDNISolone SOD SUCC/PF 62.5 MG/ML VIAL IVP SCH (06:21)
[2018-07-07] MEDS: ALBUTEROL SULFATE 0.083% 2.5 MG/3 ML VIAL.NEB INH SCH ×5 (06:36→23:00)
[2018-07-07] MEDS: IPRATROPIUM BROM 0.5 MG/2.5 ML VIAL.NEB (ATROVENT) INH SCH ×5 (06:36→23:00)
[2018-07-07 08:15] VITALS: BP_SYST 138
[2018-07-07] MEDS: guaiFENesin ER 600 MG TAB PO SCH ×2 (08:22→21:05)
[2018-07-07] MEDS: AZITHROMYCIN 500 MG in NS 250 ML IV SCH (10:07)
[2018-07-07 11:50] VITALS: BP_SYST 131
[2018-07-07 12:34] VITALS: BP_SYST 131
[2018-07-07 12:40] LABS: BILIRUBIN,URINE NEGATIVE (NEGATIVE); BLOOD, URINE NEGATIVE (NEGATIVE); CLARITY/URINE CLEAR (CLEAR); COLOR,URINE YELLOW (YELLOW); GLUCOSE,URINE NEGATIVE (NEGATIVE); KETONES,URINE NEGATIVE (NEGATIVE); LEUKOCYTE ESTERASE ,URINE NEGATIVE (NEGATIVE); NITRITE, URINE NEGATIVE (NEGATIVE); PROTEIN URINE NEGATIVE (NEGATIVE); UROBILINOGEN,URINE 0.2 (0.2-1.0)
[2018-07-07 15:46] VITALS: BP_SYST 123
[2018-07-07] MEDS: MONTELUKAST 10 MG TABLET PO SCH (18:01)
[2018-07-07 19:18] VITALS: BP_SYST 138
[2018-07-07] MEDS: PHENOL/MENTHOL 14.5 MG LOZENGE MM PRN (21:05)
[2018-07-07] MEDS: PREDNISONE 20 MG TABLET PO SCH (21:05)
[2018-07-08 00:03] VITALS: BP_SYST 127
[2018-07-08] MEDS: PHENOL/MENTHOL 14.5 MG LOZENGE MM PRN ×2 (01:05→15:39)
[2018-07-08] MEDS: IPRATROPIUM BROM 0.5 MG/2.5 ML VIAL.NEB (ATROVENT) INH SCH ×5 (07:08→23:00)
[2018-07-08] MEDS: ALBUTEROL SULFATE 0.083% 2.5 MG/3 ML VIAL.NEB INH SCH ×5 (07:08→23:00)
[2018-07-08 08:13] VITALS: BP_SYST 137
[2018-07-08] MEDS: guaiFENesin ER 600 MG TAB PO SCH ×2 (08:23→20:58)
[2018-07-08] MEDS: LEVOTHYROXINE SODIUM 0.05 MG TABLET PO SCH (08:23)
[2018-07-08] MEDS: PREDNISONE 20 MG TABLET PO SCH ×2 (08:23→20:58)
[2018-07-08 09:02] LABS: CALCIUM 8.4 mg/dL (8.4-11.0); CREATININE 0.98 mg/dL (0.55-1.30); POTASSIUM 4.2 mmol/L (3.5-5.1)
[2018-07-08] MEDS: AZITHROMYCIN 500 MG in NS 250 ML IV SCH (10:32)
[2018-07-08 12:02] VITALS: BP_SYST 131
[2018-07-08 16:02] VITALS: BP_SYST 140
[2018-07-08] MEDS: MONTELUKAST 10 MG TABLET PO SCH (17:44)
[2018-07-08 20:19] VITALS: BP_SYST 151
[2018-07-08 23:50] VITALS: BP_SYST 115
[2018-07-09] MEDS: ALBUTEROL SULFATE 0.083% 2.5 MG/3 ML VIAL.NEB INH SCH ×3 (03:00→14:22)
[2018-07-09] MEDS: IPRATROPIUM BROM 0.5 MG/2.5 ML VIAL.NEB (ATROVENT) INH SCH ×3 (03:00→14:22)
[2018-07-09 08:12] VITALS: BP_SYST 113
[2018-07-09] MEDS: LEVOTHYROXINE SODIUM 0.05 MG TABLET PO SCH (08:31)
[2018-07-09] MEDS: PREDNISONE 20 MG TABLET PO SCH (08:31)
[2018-07-09] MEDS: guaiFENesin ER 600 MG TAB PO SCH (08:31)
[2018-07-09 12:34] VITALS: BP_SYST 121
[2018-07-09] MEDS ORDERED: MED4 PO (14:04)
[2018-07-09] MEDS ORDERED: AZIT500T2 PO (14:06)
[2018-07-09] MEDS ORDERED: MONT10TA25 PO (14:06)
[2018-07-09 14:36] VITALS: BP_SYST 121
== END 2018-07-09 15:04 | disposition home or self-care (01) | DRG 202 ==
LOC: SED 06:10 → STU 09:45 → SMU 10:14 → STU 10:20 → SMU 07-05 16:28
PROVIDERS: ADMIT Internal Medicine Hospice and Palliative Medicine; ATTEND Internal Medicine Hospice and Palliative Medicine
DX: J45.901 Unspecified asthma with (acute) exacerbation (principal); J44.1 Chronic obstructive pulmonary disease with (acute) exacerbation; J45.902 Unspecified asthma with status asthmaticus; E03.9 Hypothyroidism, unspecified; E86.0 Dehydration; I10 Essential (primary) hypertension; N40.1 Benign prostatic hyperplasia with lower urinary tract symptoms; R33.8 Other retention of urine; Z59.0 Homelessness; Z87.891 Personal history of nicotine dependence; Z87.828 Personal history of other (healed) physical injury and trauma; Z79.899 Other long term (current) drug therapy
CPT/HCPCS: 36415; 36600; 71045; 80048; 80053; 81003; 82803-TC; 85025; 94640; 94760; 96365; 96375; 99285; G0378; J0456; J0696; J2930; J3475; J7030; J7050; J7512; J7612; J7613